=== PATIENT | female | born 1980 | race Caucasian/White ===

== ENCOUNTER → 2016-12-15 | Day surgery (SDC) | payer MEDICARE, OTHER ==
[~2016-12-15] MED LIST: APREPITANT 40 MG CAP ONE; BUPIVACAINE/EPINEPHRINE 0.5% 50 ML VIAL ONE; LACTATED RINGER'S 1000 ML INJ 1,000 ML ONE; LIDOCAINE 1%/EPINEPHrine 1:100,000 SOLN 20 ML VIAL ONE; MIDAZOLAM HCL 2 MG/2 ML VIAL ONE; NEOMYCIN/POLYMYXIN/BACITRACIN OINT 15 GM TUBE ONE; ONDANSETRON HCL 4 MG/2 ML VIAL IV PUSH ONE; PREN0.01 PO; PROPOFOL 500 MG/50 ML BTL IV ONE
--- NOTE | 2016-12-15 14:56 | TN ---
cc: JONAH ALTAMIRANO DATE OF SURGERY 12/15/16 PREOPERATIVE DIAGNOSIS Left posterior shoulder lipomatous structure 3 cm. POSTOPERATIVE DIAGNOSIS Lipoma left posterior shoulder 3 x 4 cm. PROCEDURE Excision of lipomatous structure 3 x 4 cm with double layer closure left posterior shoulder. ANESTHESIA TIVA. SURGEON Dr. Altamirano INDICATIONS This is a pleasant lady who has a palpable mass in the left posterior shoulder that it is quite symptomatic. Plans were made for excision. PROCEDURE IN DETAIL The patient taken to the operating room and placed supine position. After anesthesia she was placed in the right lateral decubitus position. The area in question had been previously marked and confirmed by the patient in the preop holding area. We prepped and draped. We anesthetized the area with the Marcaine solution. We made an incision just overlying the palpable mass. Dissect down to deep subcutaneous tissue identifying the lipomatous structure, somewhat attached to the medial border of the latissimus. It is easily teased away from this. The portion of it is underneath the medial edge of the muscle. The area appears to be completely excised. This was then passed off the field. Then irrigate, no other palpable masses are appreciated. Then I reapproximate the excision of the deep layer with a 3-0 Vicryl and skin is closed with a 4-0 Monocryl. Steri-Strips applied. Sterile bandage applied. The patient tolerated the procedure well and had no immediate postop complications. Jonah Altamirano MD JDB/EO /2:35 PM /2:53 PM
== END | disposition home or self-care (01) ==
LOC: ESDC 12:12
PROVIDERS: ATTEND Surgery
DX: D17.22 Benign lipomatous neoplasm of skin and subcutaneous tissue of left arm (principal)
CPT/HCPCS: 00400; 23071; 88304; J2250; J2405; J7120; J8501; 88305